=== PATIENT | male | born 1975 | race Caucasian/White ===

== ENCOUNTER 2017-03-22 03:15 | Emergency (ER) | payer SELFPAY ==
--- NOTE | 2017-03-22 04:25 | ED Physician Chart ---
ED Chief Complaint/HPI - Patient Information Date Seen:: 03/22/17 Time Seen:: 03:20 Chief Complaint:: Right Eye Redness History of Present Illness:: onset x 3 days of right eye redness, irritation, and FB sensation; pt was exposed and states he got a piece of metal that went into his eye 3 days ago; pt denies decreased vision, visual changes, eye pain, ocular discharge, eye itching,; no LOC, ALOC, AMS, head/neck trauma, H/As, Neck pain, C/P, SOB, Abd. pain, A/N/V/D/C, fever, chills, or urinary s/s Allergies:: Allergies Allergy/AdvReac Type Severity Reaction Status Date / Time No Known Allergies Allergy Verified 03/22/17 03:25 Vitals:: Vital Signs - 8 hr 03/22/17 03/22/17 03:20 03:52 Temp 98.0 F 98.1 F HR 57 58 RR 18 19 BP 128/76 126/75 O2 Sat % 99 98 Historian:: Patient Review:: Nurse's Note Reviewed ED Review of Systems - Review of Systems General/Constitutional: No fever, No chills, No weight loss, No weakness, No diaphoresis, No edema, No loss of appetite Skin: No skin lesions, No rash, No bruising Head: No headache, No light-headedness Eyes: No loss of vision, No pain, No diplopia, Other (Red Eye) ENT: No earache, No nasal drainage, No sore throat, No tinnitus Neck: No neck pain, No swelling, No thyromegaly, No stiffness, No mass noted Cardio Vascular: No chest pain, No palpitations, No PND, No orthopnea, No edema Pulmonary: No SOB, No cough, No sputum, No wheezing GI: No nausea, No vomiting, No diarrhea, No pain, No melena, No hematochezia, No constipation, No hematemesis G/U: No dysuria, No frequency, No hematuria Musculoskeletal: No bone or joint pain, No back pain, No muscle pain Endocrine: No polyuria, No polydipsia Psychiatric: No prior psych history, No depression, No anxiety, No suicidal ideation Hematopoietic: No bruising, No lymphadenopathy Allergic/Immuno: No urticaria, No angioedema Neurological: No syncope, No focal symptoms, No weakness, No paresthesia, No headache, No seizure, No dizziness, No confusion, No vertigo ED Past Medical History - Past Medical History Obtainable: Yes Past Medical History: No significant medical hx Family History: None Social History: Non Smoker, No Alcohol, No Drug Use, Single, Employed Surgical History: None Psychiatricy History: None Medication: Reviewed Family Medical History - Family Member Mother Ethnicity: ED Physical Exam - Physical Examination General/Constitutional: Awake, Well-developed, well-nourished, Alert, No distress, GCS 15, Non-toxic appearing, Ambulatory Head: Atraumatic Eyes: Lids, conjuctiva normal, PERRL, EOMI Other Eyes comments:: Va: 20/20 OU; + Right Corneal FB and Abrasion at 4 O'Clock position of Right Cornea; + Right Conjunctival Injection; no Conjunctival FBs; no ocular discharge ; PERRLA; Fundi: benign; EOMs: WNL; LLL: WNL; Skin: Nl inspection, No rash, No skin lesions, No ecchymosis, Well hydrated, No lymphadenopathy ENMT: External ears, nose nl, Nasal exam nl, Lips, teeth, gums nl Neck: Nontender, Full ROM w/o pain, No JVD, No nuchal rigidity, No bruit, No mass, No stridor Respiratory: Nl effort/Exclusion, Clear to Auscultation, No Wheeze/Rhonchi/Rales Cardio Vascular: RRR, No murmur, gallop, rubs, NL S1 S2 GI: No tenderness/rebounding/guarding, No organomegaly, No hernia, Normal BS's, Nondistended, No mass/bruits, No McBurney tenderness : No CVA tenderness Extremities: No tenderness or effusion, Full ROM, normal strength in all extremities, No edema, Normal digits & nails Neuro/Psych: Alert/oriented, DTR's symmetric, Normal sensory exam, Normal motor strength, Judgement/insight normal, Mood normal, Normal gait, No focal deficits Misc: Normal back, No paraspinal tenderness ED Assessment - Procedures Procedures:: Partial Removal of Embedded Metallic Right Corneal FB; Tobramycin Ophthalmic Eye Drops: 2 drops to Right Eye ; Double Eye Patch and Eye Shield applied to Right Eye with eyelids closed; pt improved Informed Consent: Procedure/risk/benefits explained by MD: Yes ED Septic Shock - . Is Septic Shock (SBP<90, OR Lactate>4 mmol\L) present?: No - <6hrs of presentation: Vital Signs: Vital Signs - 8 hr 03/22/17 03/22/17 03:20 03:52 Temp 98.0 F 98.1 F HR 57 58 RR 18 19 BP 128/76 126/75 O2 Sat % 99 98 ED Reassessment (Disposition) - Reassessment Reassessment:: pt is comfortable upon discharge Reassessment Condition:: Improved - Diagnosis Diagnosis:: Right Corneal Foreign Body; Right Eye FB Sensation; Right Red Eye; Right Corneal Abrasion; Right Conjunctiviis - Aftercare/Follow up Instructions Aftercare/Follow-Up Instructions:: Counseled pt regarding lab results/diagnosis & need follow up, Refer to Discharge Instructions, Counseled pt & family regarding lab results/diagnosis & need follow up Medication Prescribed:: Rx: Tobramycin Ophthalmic Eye Drops: one drop to right eye qid x 7 days; Wear Right Eye Patch x 24 hours - Patient Disposition Discharge/Transfer:: Home Condition at Disposition:: Stable, Improved (RTER prn if existing s/s reoccur and/or get worse and/or any other new s/s occur; Refer to Wage And Salary Administrator [employer]; Eye Care Instructions; ACIs Given for all above Dx; F/U with PMD today or prn; RTER prn if concerned) ED Discharge Plan - Patient Disposition Instructions: Eye - Foreign Body, [id number]
== END 2017-03-22 04:20 | disposition home or self-care (01) ==
LOC: ER 03:15
DX: H10.31 Unspecified acute conjunctivitis, right eye (principal); T15.01XA Foreign body in cornea, right eye, initial encounter; X58.XXXA Exposure to other specified factors, initial encounter; Y93.9 Activity, unspecified; Y92.9 Unspecified place or not applicable; Y99.8 Other external cause status
CPT/HCPCS: Z7502